=== PATIENT | female | born 1960 | race Caucasian/White ===

== ENCOUNTER 2016-12-17 18:15 | Emergency (ER) | payer OTHER ==
--- NOTE | ~2016-12-17 | CR63 ---
[facility] A Service of [facility] RADIOLOGY TEXT RESULTS PATIENT: NATO COLIN LOCATION: SED : 62 UNIT #: [id number] AGE: [address]: aH Hernández MD SEX: F ORDER DR: [id number] [facility] [address] [place], [place] [address] [id number] E MR#: [id number] Acc #: [id number] NAME: NATO COLIN. : 1960 SEX: F STUDY DATE/TIME: 12/17/2016 18:36 UNIT: SED ROOM: STUDY DESCRIPTION: CR Chest 2 View Attending Physician: Ha Hernández M.D. Ordering Physician: Ha Hernández M.D. Primary Care Physician: Zuleyka Coburn M.D. MEDICAL IMAGING REPORT This report is preliminary unless electronic signature is present EXAM Two view chest. HISTORY Cough. Flu. Positive smoking history. FINDINGS PA and lateral views of the chest compared to 01/14/2016. Heart and mediastinal contours are within normal limits. No new pulmonary opacities. IMPRESSION No acute cardiopulmonary findings. Dictated by... Santhosh Tompkins M.D. THIS IS AN ELECTRONICALLY VERIFIED REPORT Santhosh Tompkins M.D. at 12/24/2016 9:57 AM JHONNY/kenneth TD: 12/18/2016 09:58 JOB #: [id number] MEDICAL IMAGING REPORT Page 1 of 1 COPY
[~2016-12-17 18:15] MED LIST: ACYCLOVIR400 MG PO; ALBUTEROL0.83 MG/ML INH; ALBUTEROL17 GM INH; ALLERGY MEDS; DETROL2 M1 PO; FOSAMAX PO; SPIRIVA18 MCG INH; SYMBICORT80; VITAMIN D3400 UNI2 PO; WELLBUTRIN PO
[2016-12-17 18:17] LABS: INFLUENZA A POS (NEG); INFLUENZA B NEG (NEG)
== END 2016-12-17 19:10 | disposition home or self-care (01) ==
LOC: SED 18:15
PROVIDERS: Emergency Medicine
DX: J10.1 Influenza due to other identified influenza virus with other respiratory manifestations (principal); F17.200 Nicotine dependence, unspecified, uncomplicated; Z88.0 Allergy status to penicillin
CPT/HCPCS: 71020; 87651; 87804; 99283

== ENCOUNTER 2017-06-18 18:20 | Emergency (ER) | payer OTHER ==
[~2017-06-18] VITALS: Ht 149.9 cm; Wt 49.9 kg
== END 2017-06-18 21:15 | disposition left against medical advice (07) ==
LOC: SED 18:20
DX: Z53.21 Procedure and treatment not carried out due to patient leaving prior to being seen by health care provider (principal)